=== PATIENT | female | born 1945 | race Caucasian/White ===

== ENCOUNTER 2017-10-16 09:41 | Inpatient (IN) | payer MEDICARE, OTHER ==
[~2017-10-16] VITALS: Ht 160 cm; Wt 86.6 kg
[~2017-10-16 09:41] MED LIST: AMPYRA PO; AMPYRA10 MG PO; APRODINE; ATOR20 PO; BUPR150ER; CITA20 PO; CLON2 PO; DOXY100 PO; ESTR1; FURO40; GABA300; GABA400 PO; GABA600 PO; HYDACE5; IBUP800; LEVO750 PO; LIVALO; LIVALO2 MG PO; OLAN5 PO; POTCHL10ER; PRED5 PO; PSEU120ER PO; PSEU30 PO; TOLT4; TRAZ100 PO; TRAZ150T57 PO; Ultram50 MG PO; WARF3; WARF3 PO; WARF4 PO; WARF5 PO; WARF6 PO; XARELTO10 MG PO; XARELTO20 MG PO; [UNRECOGNIZED DRUG - OTHER]; [UNRECOGNIZED DRUG - OTHER] PO
[2017-10-16 14:11] LABS: BASOPHILS ABSOLUTE AUTO 0.03 K/mm3 (0.00-0.23); BASOPHILS PERCENT AUTO 1 % (0-2); EOSINOPHILS ABSOLUTE AUTO 0.12 K/mm3 (0.00-0.68); EOSINOPHILS PERCENT AUTO 2 % (0-6); Hemoglobin 14.8 g/dL (11.5-16.0); IMMATURE GRAN ABSOLUTE AUTO 0.02 K/mm3 (0.00-0.10); IMMATURE GRAN PERCENT AUTO 0 % (0-1); LYMPHOCYTES ABSOLUTE AUTO 1.47 K/mm3 (0.84-5.20); LYMPHOCYTES PERCENT AUTO 23 % (21-46); MONOCYTES ABSOLUTE AUTO 0.48 K/mm3 (0.16-1.47); MONOCYTES PERCENT AUTO 7 % (4-13); Mean Corpuscular HGB 30.1 pg (26.0-34.0); Mean Corpuscular HGB Conc 32.2 g/dL (31.5-36.5); Mean Corpuscular Volume 94 fL (80-100); Mean Platelet Volume 11.3 fL (9.1-12.4); NEUTROPHILS ABSOLUTE AUTO 4.36 K/mm3 (1.96-9.15); NEUTROPHILS PERCENT AUTO 67 % (41-73); Platelet Count 220 K/mm3 (150-400); RDW Coefficient Variation 13.4 % (11.7-14.2); RDW Standard Deviation 46.5 fL (35.1-46.3); Red Blood Cell Count 4.91 M/mm3 (3.80-5.20); White Blood Cell Count 6.48 K/mm3 (4.00-11.30)
[2017-10-16 14:17] LABS: Bun/Creatinine Ratio 10.4 (12.0-20.0); Calcium, Blood 8.6 mg/dL (8.5-10.1); Creatinine, Blood 1.15 mg/dL (0.40-1.00)
[2017-10-16 14:23] LABS: International Normalized Ratio 0.97
[2017-10-16] MEDS ORDERED: ELIQUIS5 MG PO (16:42)
[2017-10-16] MEDS ORDERED: ACTIFED PO (16:48)
[2017-10-16] MEDS ORDERED: Estrace Vagin42.5 GM VAG (17:40)
== END 2017-10-18 15:03 | disposition home or self-care (01) | DRG 59 ==
LOC: ER 09:41 → MEDS 14:12 → ENPENDDIS 10-18 14:06 → MEDS 10-18 15:03
PROVIDERS: Emergency Medicine
PROC: 0HQ1XZZ Repair Face Skin, External Approach (ICD-10-PCS; principal; 2017-10-16)
DX: G35 Multiple sclerosis (principal); S02.609A Fracture of mandible, unspecified, initial encounter for closed fracture; S09.90XA Unspecified injury of head, initial encounter; S01.81XA Laceration without foreign body of other part of head, initial encounter; W18.30XA Fall on same level, unspecified, initial encounter; Z91.81 History of falling; Y92.9 Unspecified place or not applicable; R32 Unspecified urinary incontinence; F41.9 Anxiety disorder, unspecified; F41.8 Other specified anxiety disorders; K44.9 Diaphragmatic hernia without obstruction or gangrene; N18.3 Chronic kidney disease, stage 3 (moderate); E78.00 Pure hypercholesterolemia, unspecified; Z86.718 Personal history of other venous thrombosis and embolism
CPT/HCPCS: 12013; 36415; 70450; 73110; 80048; 81000; 85025; 85610; 90471; 90714; 93005; 93010; 96372; 96374; 96375; 97116; 97162; 97166; 97530; 97535; 99285-25; G8978; G8979; G8987; G8988; J1885; J2405; J2930

== ENCOUNTER 2018-06-16 19:39 | Emergency (ER) | payer MEDICARE, OTHER ==
[~2018-06-16] VITALS: Ht 160 cm; Wt 86.2 kg
[~2018-06-16 19:39] MED LIST changes: +ACTIFED PO; +ELIQUIS5 MG PO; +Estrace Vagin42.5 GM VAG
[2018-06-16 20:14] LABS: BASOPHILS ABSOLUTE AUTO 0.03 K/mm3 (0.00-0.23); BASOPHILS PERCENT AUTO 1 % (0-2); EOSINOPHILS ABSOLUTE AUTO 0.13 K/mm3 (0.00-0.68); EOSINOPHILS PERCENT AUTO 3 % (0-6); Hematocrit 48.7 % (33.0-51.0); Hemoglobin 15.2 g/dL (11.5-16.0); IMMATURE GRAN ABSOLUTE AUTO 0.01 K/mm3 (0.00-0.10); IMMATURE GRAN PERCENT AUTO 0 % (0-1); LYMPHOCYTES ABSOLUTE AUTO 1.23 K/mm3 (0.84-5.20); LYMPHOCYTES PERCENT AUTO 26 % (21-46); MONOCYTES ABSOLUTE AUTO 0.57 K/mm3 (0.16-1.47); MONOCYTES PERCENT AUTO 12 % (4-13); Mean Corpuscular HGB 29.1 pg (26.0-34.0); Mean Corpuscular HGB Conc 31.2 g/dL (31.5-36.5); Mean Corpuscular Volume 93 fL (80-100); NEUTROPHILS ABSOLUTE AUTO 2.79 K/mm3 (1.96-9.15); NEUTROPHILS PERCENT AUTO 59 % (41-73); Platelet Count 182 K/mm3 (150-400); Red Blood Cell Count 5.22 M/mm3 (3.80-5.20); White Blood Cell Count 4.76 K/mm3 (4.00-11.30)
[2018-06-16 20:34] LABS: Albumin, Blood 3.2 g/dL (3.4-5.0); Albumin/Globulin Ratio 0.9 (0.8-1.8); Bilirubin, Total 0.4 mg/dL (0.1-1.0); Calcium, Blood 8.4 mg/dL (8.5-10.1); Creatinine, Blood 1.1 mg/dL (0.40-1.00); Globulin, Blood 3.6 g/dL (2.2-4.0); Potassium, Blood 3.9 mmol/L (3.5-5.5); Total Protein, Blood 6.8 g/dL (6.4-8.2)
[2018-06-16 20:36] LABS: International Normalized Ratio 0.97; Prothrombin Time Results 10.3 Sec (9.7-11.5)
[2018-06-16] MEDS ORDERED: Zithromax250 MG PO (21:36)
[2018-06-16] MEDS ORDERED: BENZ100A PO (21:36)
== END 2018-06-16 23:18 | disposition home or self-care (01) ==
LOC: ER 19:39
PROVIDERS: Physician Assistant
DX: J18.9 Pneumonia, unspecified organism (principal); F32.9 Major depressive disorder, single episode, unspecified; F41.9 Anxiety disorder, unspecified; E78.5 Hyperlipidemia, unspecified; N18.3 Chronic kidney disease, stage 3 (moderate); Z87.891 Personal history of nicotine dependence
CPT/HCPCS: 36415; 71046; 80053; 85025; 85610; 85730; 93005; 93010; 94640; 96365; 99285-25; J0456; J7050

== ENCOUNTER 2018-06-18 10:40 | Emergency (ER) | payer MEDICARE, OTHER ==
[~2018-06-18] VITALS: Ht 160 cm; Wt 86.2 kg
[~2018-06-18 10:40] MED LIST changes: +BENZ100A PO; +Zithromax250 MG PO
[2018-06-18] MEDS ORDERED: PRED20 PO (13:06)
[2018-06-18] MEDS ORDERED: ALBU90OI INH (13:06)
[2018-06-18] MEDS ORDERED: Zofran8 MG PO (13:06)
[2018-06-18] MEDS ORDERED: HYDR1TAB94 PO (13:06)
== END 2018-06-18 13:44 | disposition home or self-care (01) ==
LOC: ER 10:40
DX: J40 Bronchitis, not specified as acute or chronic (principal); G35 Multiple sclerosis; E78.5 Hyperlipidemia, unspecified; F32.9 Major depressive disorder, single episode, unspecified; N18.3 Chronic kidney disease, stage 3 (moderate); Z88.6 Allergy status to analgesic agent; Z88.5 Allergy status to narcotic agent; Z91.018 Allergy to other foods; Z79.899 Other long term (current) drug therapy; Z87.891 Personal history of nicotine dependence; Z86.718 Personal history of other venous thrombosis and embolism; Z87.01 Personal history of pneumonia (recurrent)
CPT/HCPCS: 93005; 93010; 94644; J7512

== ENCOUNTER 2018-10-24 17:24 | Emergency (ER) | payer MEDICARE, OTHER ==
[~2018-10-24] VITALS: Ht 152.4 cm; Wt 86.2 kg
[~2018-10-24 17:24] MED LIST changes: +ALBU90OI INH; +HYDR1TAB94 PO; +PRED20 PO; +Zofran8 MG PO
== END 2018-10-24 19:47 | disposition home or self-care (01) ==
LOC: ER 17:24
DX: M79.89 Other specified soft tissue disorders (principal); F41.8 Other specified anxiety disorders; N18.2 Chronic kidney disease, stage 2 (mild); M79.662 Pain in left lower leg; E78.5 Hyperlipidemia, unspecified; Z86.718 Personal history of other venous thrombosis and embolism; Z87.01 Personal history of pneumonia (recurrent); Z87.891 Personal history of nicotine dependence; Z88.5 Allergy status to narcotic agent; Z88.8 Allergy status to other drugs, medicaments and biological substances; Z91.018 Allergy to other foods; Z79.899 Other long term (current) drug therapy; Z79.01 Long term (current) use of anticoagulants; Z79.52 Long term (current) use of systemic steroids
CPT/HCPCS: 93971; 99283-25

== ENCOUNTER → 2018-11-04 | Outpatient (CLI) | payer MEDICARE, OTHER ==
[2018-11-04 15:40] LABS: BASOPHILS ABSOLUTE AUTO 0.02 K/mm3 (0.00-0.23); BASOPHILS PERCENT AUTO 0 % (0-2); EOSINOPHILS ABSOLUTE AUTO 0.08 K/mm3 (0.00-0.68); EOSINOPHILS PERCENT AUTO 1 % (0-6); Hematocrit 48.1 % (33.0-51.0); Hemoglobin 15.5 g/dL (11.5-16.0); IMMATURE GRAN ABSOLUTE AUTO 0.02 K/mm3 (0.00-0.10); IMMATURE GRAN PERCENT AUTO 0 % (0-1); LYMPHOCYTES PERCENT AUTO 17 % (21-46); MONOCYTES ABSOLUTE AUTO 0.38 K/mm3 (0.16-1.47); MONOCYTES PERCENT AUTO 6 % (4-13); Mean Corpuscular HGB 29.6 pg (26.0-34.0); Mean Corpuscular HGB Conc 32.2 g/dL (31.5-36.5); Mean Corpuscular Volume 92 fL (80-100); Mean Platelet Volume 10.8 fL (9.1-12.4); NEUTROPHILS ABSOLUTE AUTO 4.97 K/mm3 (1.96-9.15); NEUTROPHILS PERCENT AUTO 76 % (41-73); Platelet Count 193 K/mm3 (150-400); RDW Coefficient Variation 13.3 % (11.7-14.2); RDW Standard Deviation 45.5 fL (35.1-46.3); Red Blood Cell Count 5.23 M/mm3 (3.80-5.20); White Blood Cell Count 6.57 K/mm3 (4.00-11.30)
[2018-11-04 15:58] LABS: Alanine Aminotransfer (ALT/SGP 25 U/L (12-78); Albumin, Blood 3.1 g/dL (3.4-5.0); Alk Phos 123 U/L (40-126); Anion Gap 5 mmol/L (6-16); Aspartate Aminotrans (AST/SGOT 24 U/L (12-37); Blood Urea Nitrogen 14 mg/dL (8-24); Bun/Creatinine Ratio 10.3 (12.0-20.0); CO2, Blood 30 mmol/L (21-32); Calcium, Blood 8.8 mg/dL (8.5-10.1); Chloride, Blood 106 mmol/L (98-108); Creatinine, Blood 1.36 mg/dL (0.40-1.00); Globulin, Blood 3.2 g/dL (2.2-4.0); Glomerular Filtration Rate 38 (60-); Glucose, Blood 121 mg/dL (70-99); Potassium, Blood 4.2 mmol/L (3.5-5.5); Sodium, Blood 141 mmol/L (136-145); Total Protein, Blood 6.3 g/dL (6.4-8.2)
[2018-11-04 16:03] LABS: Troponin I <0.017 ng/mL (0.000-0.040)
== END | disposition home or self-care (01) ==
LOC: LAB SHORT 15:35 → LAB EV 15:35
PROVIDERS: Family Medicine
DX: R07.9 Chest pain, unspecified (principal)
CPT/HCPCS: 80053; 84484; 85025; 85379

== ENCOUNTER → 2019-04-21 | Outpatient (CLI) | payer MEDICARE, OTHER ==
[2019-04-21 17:58] LABS: Source, Urine Clean Catch
[2019-04-21 18:21] LABS: Bacteria Few /hpf; Squamous Epithelial Cells Few /hpf (Few); White Blood Cells, Urine TNTC /hpf (0-5)
[2019-04-21 18:22] LABS: Calcium Oxalate Crystals Mod /hpf
== END | disposition home or self-care (01) ==
LOC: LAB EV 17:57 → LAB SHORT 17:57
PROVIDERS: Family Medicine
DX: R30.9 Painful micturition, unspecified (principal)
CPT/HCPCS: 81015

== ENCOUNTER → 2020-12-18 | Outpatient (CLI) | payer MEDICARE, OTHER | END | disposition home or self-care (01) | LOC: LAB SHORT 08:18 | DX: D48.5 Neoplasm of uncertain behavior of skin (principal) | CPT/HCPCS: 88305 ==

== ENCOUNTER 2022-07-08 08:47 | Day surgery (SDC) | payer MEDICARE, OTHER ==
[~2022-07-08] VITALS: Ht 154.9 cm; Wt 76.7 kg
[~2022-07-08 08:47] MED LIST changes: +Norco 5-325 Ta1 EACH PO
[2022-07-08] MEDS ORDERED: AMLO5 (09:21)
[2022-07-08] MEDS ORDERED: ATOR20 (09:22)
[2022-07-08] MEDS ORDERED: ZOLPIDEM TART1.75 MG (09:22)
[2022-07-08 10:41] VITALS: BP 105/53
== END 2022-07-08 10:40 | disposition home or self-care (01) ==
LOC: ORSCSDS 08:47
PROVIDERS: Internal Medicine Gastroenterology
PROC: 0DBK8ZX Excision of Ascending Colon, Via Natural or Artificial Opening Endoscopic, Diagnostic (ICD-10-PCS; principal; 2022-07-08 10:00)
PROC: 0DBN8ZX Excision of Sigmoid Colon, Via Natural or Artificial Opening Endoscopic, Diagnostic (ICD-10-PCS; principal; 2022-07-08 10:00)
DX: Z12.11 Encounter for screening for malignant neoplasm of colon (principal); K63.5 Polyp of colon; D12.5 Benign neoplasm of sigmoid colon; K57.30 Diverticulosis of large intestine without perforation or abscess without bleeding; K64.4 Residual hemorrhoidal skin tags; Z86.010 Personal history of colon polyps; Z86.718 Personal history of other venous thrombosis and embolism; F32.A Depression, unspecified; F41.9 Anxiety disorder, unspecified; Z79.01 Long term (current) use of anticoagulants; Z79.899 Other long term (current) drug therapy; Z87.891 Personal history of nicotine dependence
CPT/HCPCS: 88305; J2704; J7120